=== PATIENT | male | born 1955 | race Caucasian/White ===

== ENCOUNTER 2021-02-06 13:36 | Observation (INO) ==
[2021-02-06 14:39] LABS: Basophils % 0.4 % (0.0-0.8); Eosinophils # 0.3 10*3/uL (0.0-0.87); Eosinophils % 4.5 % (0.00-10.9); Hematocrit 46.7 VOL% (42.0-52.0); Hemoglobin 15.1 GM/DL (14.0-18.0); Immature Granulocytes % 0.5 %; Immature Granulocytes Absolute 0.04 #; Lymphocytes # 1.6 10*3/uL (1.4-4.0); Lymphocytes % 21.5 % (21.2-54.2); Mean Corpuscular HGB Conc 32.3 GM/DL (32-36); Mean Corpuscular Volume 93.2 FL (87-102); Neutrophils % 65.1 % (38.7-73.9); Platelet Count 173 T/CUMM (130-400); Red Blood Count 5.01 MC/CUMM (3.8-5.5); White Blood Count 7.5 T/CUMM (4-12)
[2021-02-06] MEDS ORDERED: ASPIRIN 325 MG TABLET PO STA (14:52)
[2021-02-06 15:07] LABS: Eosinophils 2 % (0-10); Lymphocytes 26 % (20-55); Segmented Neutrophils 66 % (50-85); Total Cells Counted 100
[2021-02-06 15:09] LABS: Platelet Estimate Normal; Reactive Lymphocytes 1+
[2021-02-06 15:10] LABS: Bilirubin,Total 0.8 MG/DL (0.2-1.0); Hypochromasia Slight; Osmolality,Calculated 275.4 MOS/KG (273-304); Potassium 4.3 MMOL/L (3.5-5.1); Total Protein 7.1 G/DL (6.4-8.2)
[2021-02-06 15:41] LABS: Barbiturates Screen,Urine Negative (Negative); Benzodiazepines Screen,Urine Negative (Negative); Cannabinoid Screen,Urine Negative (Negative); Opiate Screen,Urine Negative (Negative); Phencyclidine Screen,Urine Negative (Negative)
[2021-02-06] MEDS ORDERED: DEXTROSE 50% 25 GM/50 ML VIAL IV PRN (15:59)
[2021-02-06] MEDS ORDERED: GLUCAGON 1 MG VIAL IM PRN (15:59)
[2021-02-06] MEDS ORDERED: ONDANSETRON 4 MG/2 ML VIAL IV PRN (16:11)
[2021-02-06] MEDS ORDERED: MORPHINE 4 MG/1 ML VIAL IV PRN (16:18)
[2021-02-06] MEDS ORDERED: cefTRIAXone 1,000 MG in SODIUM CHLORIDE 0.9% 100 ML IV SCH (17:00)
[2021-02-06] MEDS ORDERED: ENOXAPARIN 40 MG/0.4 ML SYRINGE SUBCUT SCH (18:00)
[2021-02-06] MEDS: NICOTINE 21 MG/24 HR PATCH TRANSDERM SCH (18:02)
[2021-02-06] MEDS: DOCUSATE SODIUM 100 MG CAPSULE PO SCH (20:41)
[2021-02-06] MEDS ORDERED: BENZTROPINE 1 MG TABLET PO SCH (21:00)
[2021-02-06] MEDS ORDERED: CITALOPRAM 20 MG TABLET PO SCH (21:00)
[2021-02-07 06:02] LABS: Basophils % 0.6 % (0.0-0.8); Eosinophils # 0.4 10*3/uL (0.0-0.87); Hematocrit 48.3 VOL% (42.0-52.0); Hemoglobin 15.4 GM/DL (14.0-18.0); Immature Granulocytes % 0.6 %; Immature Granulocytes Absolute 0.04 #; Lymphocytes # 1.6 10*3/uL (1.4-4.0); Lymphocytes % 22.6 % (21.2-54.2); Mean Corpuscular HGB Conc 31.9 GM/DL (32-36); Mean Corpuscular Volume 94.9 FL (87-102); Mean Platelet Volume 10.1 FL (9.6-12.0); Monocytes % 8.1 % (1.7-12.7); Neutrophils % 63.1 % (38.7-73.9); Platelet Count 154 T/CUMM (130-400); Red Blood Count 5.09 MC/CUMM (3.8-5.5)
[2021-02-07 06:16] LABS: Calcium 8.9 MG/DL (8.5-10.1); Osmolality,Calculated 277.4 MOS/KG (273-304); Potassium 4.8 MMOL/L (3.5-5.1)
[2021-02-07] MEDS: DOCUSATE SODIUM 100 MG CAPSULE PO SCH (08:42)
[2021-02-07] MEDS: NICOTINE 21 MG/24 HR PATCH TRANSDERM SCH (08:43)
[2021-02-07] MEDS ORDERED: ASPIRIN EC 325 MG TABLET PO SCH (09:00)
[2021-02-07] MEDS ORDERED: ARIPiprazole 10 MG TABLET PO SCH (09:00)
[2021-02-07] MEDS ORDERED: buPROPion XL 150 MG TABLET PO SCH (09:00)
[2021-02-07 12:05] VITALS: BP 127/72
[2021-02-07] MEDS ORDERED: SIMVASTATIN 10 MG TABLET PO SCH (21:00)
== END 2021-02-07 14:45 | disposition home or self-care (01) ==
LOC: N.ED 13:36 → N.EDINP 13:36 → N.TELEN 17:32
PROVIDERS: ADMIT Hospitalist; ATTEND Hospitalist